=== PATIENT | male | born 1980 | race Caucasian/White ===

== ENCOUNTER 2022-03-11 09:56 | Emergency (ER) | payer OTHER, MEDICAID ==
[~2022-03-11] VITALS: Ht 162.6 cm; Wt 69.4 kg
[2022-03-11 10:04] VITALS: BP 128/88
--- NOTE | 2022-03-11 10:26 | NUR ---
41 y/o male bib spouse from home, pt presents to ed with c/o right knee pain for 5 days after jumping over fence. pt states he felt a "pull", states he has been having pressure in his right knee, 4/10 pain increases with ambulation. pmh: asthma nka
--- NOTE | 2022-03-11 13:13 | NUR ---
pt lwbs at this time
== END 2022-03-11 13:13 | disposition left against medical advice (07) ==
LOC: MED 09:56
DX: M25.561 Pain in right knee (principal); Z53.21 Procedure and treatment not carried out due to patient leaving prior to being seen by health care provider
CPT/HCPCS: 73562

== ENCOUNTER 2022-03-14 13:00 | Emergency (ER) | payer OTHER, MEDICAID ==
[~2022-03-14] VITALS: Ht 165.1 cm; Wt 71.2 kg
[2022-03-14 13:21] VITALS: BP 166/75
[2022-03-14 15:07] VITALS: BP 114/79
--- NOTE | 2022-03-14 15:08 | NUR ---
Patient discharged with v/s stable. Written and verbal after care instructions given and explained. Patient verbalized understanding. Ambulatory with steady gait. All questions addressed prior to discharge. Advised to follow up with PMD.
== END 2022-03-14 15:07 | disposition home or self-care (01) ==
LOC: MED 13:00
DX: S83.91XA Sprain of unspecified site of right knee, initial encounter (principal); Z72.89 Other problems related to lifestyle; X58.XXXA Exposure to other specified factors, initial encounter; Y93.89 Activity, other specified; Y92.89 Other specified places as the place of occurrence of the external cause; Y99.8 Other external cause status
CPT/HCPCS: 99281